=== PATIENT | male | born 1950 | race Caucasian/White ===

== ENCOUNTER 2017-08-25 11:04 | Outpatient (CLI) | payer MEDICARE ==
[~2017-08-25] VITALS: Ht 185.4 cm; Wt 97.7 kg
--- NOTE | ~2017-08-25 | HEMODYNAMI ---
PATIENT:CHAR SINGH MEDICAL RECORD: [id number] : 52 LOCATION:[facility] ADMISSION DATE: 08/25/17 Generatedon:08/25/201713:55 Patient name: CHAR SINGH Patient #: [id number] SSN: : 1950 Date of study: 08/25/2017 Page: Of Hemodynamic Procedure Report Patient Data Patient Demographics Procedure consent was obtained First Name: CHAR Gender: Male Last Name: SAMANTHA : 1950 Patient #: [id number] Age: 67 year(s) Race: Unknown Additional ID: [id number] Contact details [address]: [address] [place] [address] State: [place] City: [place] Zip code: [address] Admission Admission Data Admission Date: 08/25/2017 Admission Time: 11:04 Procedure Procedure Types Cath Procedure Diagnostic Procedure LHC LHC w/Coronaries Procedure Description Procedure Date Procedure Date: 08/25/2017 Procedure Start Time: 13:42 Procedure End Time: 13:53 Procedure Staff Name Function Jesus To MD Performing Physician Vangie Ochoa RT Monitor Arcelia Bell RT Scrub Kadeem Dejesus RN Nurse Procedure Data Cath Procedure Fluoroscopy Diagnostic fluoroscopy Total fluoroscopy Time: 2.2 time: 2.2 min min Diagnostic fluoroscopy Total fluoroscopy dose: 950 dose: 950 mGy mGy Contrast Material Contrast Material Type Amount (ml) Isovue 300 53 Entry Location Entry Primary Successful Side Size Upsize Upsize Entry Closure Solo ccessful Closure Location (Fr) 1 (Fr) 2 (Fr) Remarks Device Remarks Radial Right 6 Fr Mechanical artery Short Compression Estimated blood loss: 5 ml Diagnostic catheters Device Type Used For End Catheter Placement DIAGNOSTIC Burwell 110cm 5 Multi-vessel Fr catheter ([id number]) Angiography Procedure Complications No complications Procedure Medications Medication Administration Route Dosage 0.9% NaCl I.V. 100 ml/hr Oxygen etCO2 Nasal cannula 2 l/min Heparin Flush Bag added to field 2 bags (1000units/500ml NS) Lidocaine 2% added to field 20 Radial Cocktail added to field 1 syringe (Verapomil 2mg/Nitro 400mcg/Heparin 1500units) Versed I.V. 1 mg Fentanyl I.V. 50 mcg Radial Cocktail I.A. 1 syringe (Verapomil 2mg/Nitro 400mcg/Heparin 1500units) Hemodynamics Rest Heart Rate: 59 (bpm) Pressure Samples Time Site Value (mmHg) Purpose Heart Use Rate(bpm) 13:45 LV 138/0,22 Snapshot 77 13:46 AO 102/58(77) Pullback 76 13:46 LV 113/0,9 Pullback 76 Gradients Valve Time Site 1 Site 2 Mean SEP/DFP Peak To Heart Use (mmHg) (sec/min) Peak Rate (mmHg) (bpm) Aortic 13:45 LV AO 101 Aortic 13:46 LV AO 12 20 11 76 113/0,9 102/58(77) Calculations Valve P-P Mean Valve Index Valve Source Name Gradient Area Flow (cm2) Aortic 11 12 11 12 Snapshots Pre Cath Intra NCS Post Cath Vital Signs Time Heart Resp SPO2 etCO2 NIBP (mmHg) Rhythm Pain Sedation Rate (ipm) (%) (mmHg) Status Level (bpm) 13:23:39 60 17 97 0 148/65(100) NSR 0 (11) 10(A) , No pain 13:27:32 62 18 95 27.7 131/73(96) NSR 0 (11) 10(A) , No pain 13:31:26 57 15 96 25.4 131/69(97) NSR 0 (11) 10(A) , No pain 13:35:20 57 13 96 26.1 117/67(91) NSR 0 (11) 10(A) , No pain 13:40:16 61 13 95 32.1 145/72(98) NSR 0 (11) 10(A) , No pain 13:44:12 68 17 96 29.9 123/74(97) NSR 0 (11) 9(A) , No pain 13:48:03 76 17 93 27.7 116/68(88) NSR 0 (11) 9(A) , No pain 13:52:21 79 18 95 28.4 126/70(100) NSR 0 (11) 10(A) , No pain Medications Time Medication Route Dose Verified Delivered Reason Notes Effectiveness by by 13:21:59 0.9% NaCl I.V. 100 Levon Levon Per ml/hr Dharmesh Barroso physician RN RN 13:22:07 Oxygen etCO2 2 l/min Levon Levon Per Nasal Dharmesh Barroso physician cannula RN RN 13:22:17 Heparin Flush added 2 bags Levon Levon used for Bag to Lorigan Dharmesh procedure (1000units/500ml field RN RN NS) 13:22:27 Lidocaine 2% added 20ml Levon Levon for local to vial Lorigan Lorigan anesthetic field RN RN 13:22:38 Radial Cocktail added 1 Levon Levon used for (Verapomil to syringe Lorigan Carmeligan procedure 2mg/Nitro field RN RN 400mcg/Heparin 1500units) 13:41:48 Versed I.V. 1 mg Levon Levon for sedation Dharmesh Barroso RN RN 13:41:58 Fentanyl I.V. 50 mcg Levon Levon for sedation Dharmesh Barroso RN RN 13:44:13 Radial Cocktail I.A. 1 Levon Jesus for (Verapomil syringe Dharmesh To MD vasodilation 2mg/Nitro RN 400mcg/Heparin 1500units) Procedure Log Time Note 13:00:50 Vangie Ochoa RT(R) sent for patient. Start room use. 13:15:32 Diagnostic Cath Status : Elective 13:16:01 Time tracking: Regular hours (M-F 7:00 - 5:00) 13:16:06 Plan of Care:Hemodynamics will remain stable., Cardiac rhythm will remain stable., Comfort level will be maintained., Respiratory function will remain adequate., Patient/ family verbilizes understanding of procedure., Procedure tolerated without complication., Recovers from procedure without complications.. 13:16:32 Patient received from Pre/Post Procedure Room to [facility] 2 Alert and oriented. Tansferred to table in Supine position. 13:16:33 Warm blankets applied, and hannah hugger turned on for patient comfort. 13:16:33 Correct patient and procedure confirmed by team. 13:16:35 Signed procedure consent form obtained from patient. 13:16:36 ECG and BP/O2 sat monitors applied to patient. 13:21:59 0.9% NaCl 100 ml/hr I.V. was administered by Levon Barroso RN; Per physician; 13:22:07 Oxygen 2 l/min etCO2 Nasal cannula was administered by Levon Barroso RN; Per physician; 13:22:17 Heparin Flush Bag (1000units/500ml NS) 2 bags added to field was administered by Levon Barroso RN; used for procedure; 13::27 Lidocaine 2% 20ml vial added to field was administered by Levon Barroso RN; for local anesthetic; 13:22:38 Radial Cocktail (Verapomil 2mg/Nitro 400mcg/Heparin 1500units) 1 syringe added to field was administered by Levon Barroso RN; used for procedure; ::41 Vital chart was started 13:25:33 Baseline sample Acquired. 13:25:39 Rhythm: sinus rhythm 13:25:41 Full Disclosure recording started 13::44 H&P Date Dictated: 08/25/2017 Within 30 days and on chart., H&P Addendum completed by physician on day of procedure. (MUST COMPLETE FOR ALL OUTPATIENTS). 13:25:46 Pre-procedure instructions explained to patient. 13:25:46 Pre-op teaching completed and patient verbalized understanding. 13:25:47 Family in waiting room. 13:25:49 Patient NPO since Midnight. 13:25:51 Is the patient allergic to Iodine/contrast media? No. 13:25:52 Was the patient premedicated? No 13:25:53 Is patient on blood thinner?No 13:25:54 Patient diabetic? Yes. 13:25:55 If diabetic: On Metformin? Yes 13:25:58 If on Metformin: Last Dose? 08/23/2017 13:26:21 Previous problem with sedation/anesthesia? No ? 13:26:23 Snore? No 13:26:24 Sleep apnea? No 13:26:25 Deviated septum? No 13:26:25 Opens mouth fully? Yes 13:26:26 Sticks out tongue? Yes 13:26:28 Airway obstruction? No ? 13:26:31 Dentures? No ? 13:26:39 Pre procedure: right dorsailis pedis pulse 2+ Normal; easily identifiable; not easily obliterated 13::41 Pre procedure: left dorsailis pedis pulse 2+ Normal; easily identifiable; not easily obliterated 13:26:43 Patient pain scale 0/10 ?. 13:26:48 IV patent on arrival in left hand with 0.9% NaCl at [facility]. 13:26:50 Lab results completed and on chart. 13:26:54 Right Radial & Right Groin area was prepped with chlora-prep and draped in sterile fashion 13:26:55 Alarms reviewed by R. N. 13:26:55 Sharps counted by scrub and verified by R.N. 13:39:17 Physician arrived 13:39:18 --------ALL STOP TIME OUT------ 13:39:18 Final Timeout: patient, procedure, and site verified with staff and physician. All members of the team are in agreement. 13:39:23 Right Radial & Right Groin site verified by team. 13:39:30 Physical assessment completed. ASA score P 2 - A patient with mild systemic disease as per Jesus To MD. 13:39:34 Sedation plan: IV Moderate Sedation Medication:Versed, Fentanyl 13:41:46 Use device set Radial Dx or PCI 13:41:47 ACIST Syringe (96011) opened to sterile field. 13:41:47 Medline Cath Pack ([id number]) opened to sterile field. 13:41:48 Versed 1 mg I.V. was administered by Levon Barroso RN; for sedation; 13:41:48 Bag Decanter (2002S) opened to sterile field. 13:41:48 DIAGNOSTIC WIRE .035 260cm J wire (984940) opened to sterile field. 13:41:49 ACIST Hand Control (61893) opened to sterile field. 13:41:49 ACIST Manifold (03727) opened to sterile field. 13:41:50 Tegaderm 4 x 4 (1626W) opened to sterile field. 13:41:52 SHEATH 6Fr Prelude Radial ([id number]) opened to sterile field. 13:41:58 Fentanyl 50 mcg I.V. was administered by Levon Barroso RN; for sedation; 13:41:58 Procedure started. 13:42:05 Local anesthetic to right radial artery with Lidocaine 2% by Jesus To MD.INITIAL ACCESS ONLY 13:42:13 A 6 Fr Short sheath was inserted into the Right Radial artery 13:44:13 Radial Cocktail (Verapomil 2mg/Nitro 400mcg/Heparin 1500units) 1 syringe I.A. was administered by Jesus To MD; for vasodilation; 13:45:07 A DIAGNOSTIC Burwell 110cm 5 Fr catheter (338749) was advanced over the wire and used for Multi-vessel Angiography. 13:45:21 LV hemodynamics recorded. 13:45:22 LV gram done using MONROE 13:45:25 Injector settings: Ml/sec: 5, Volume: 15, 13:45:37 EF : 50 % 13:46:52 RCA angiography performed. 13:46:56 Injector settings: Ml/sec: 3, Volume: 6, 13:47:59 LCA angiography performed. 13:48:02 Injector settings: Ml/sec: 3, Volume: 6, 13:49:46 Catheter removed. 13:49:49 TR BAND Standard ([id number]) opened to sterile field. 13:50:11 Sheath removed intact; hemostasis achieved with Mechanical Compression to the Right Radial artery. 13:50:56 Procedure ended.(Physican Out) 13:51:55 Fluoroscopy time 02.20 minutes. 13:52:01 Fluoroscopy dose: 950 mGy 13:52:01 Flurop Dose total: 950 13:52:16 Contrast amount:Isovue 300 53ml. 13:52:18 Sharps counted by scrub and verified by R.N. 13:52:20 TR band inflated with 10cc of air. 13:52:22 Insertion/operative site no bleeding no hematoma. 13:52:25 Post right radial artery:stable 13:52:26 Post Procedure Pulses reassessed and unchanged 13:52:30 Post procedure rhythm: unchanged. 13:52:33 Estimated blood loss: 5 ml 13:52:34 Post procedure instruction explained to patient.Patient verbalizes understanding. 13:52:34 Patient needs reinforcement of post procedure teaching. 13:52:52 Procedure and supply charges have been captured, reviewed, submitted and are correct. 13:53:11 Procedure Complication : No complications 13:53:15 Vital chart was stopped 13:53:15 See physician's report for complete and final results. 13:53:17 Report given to Pre/Post Procedure Room. 13:53:20 Patient transfered to Pre/Post Procedure Room with Stretcher. 13:53:22 Procedure ended. 13:53:22 Full Disclosure recording stopped 13:53:44 End room use (Document Last) Device Usage Item Name Manufacture Quantity Catalog Number Hospital Part Current M inimal Lot# / Charge Number Stock Stock Serial# Code ACIST Syringe Acist 1 65977 [id number] [id number] 411202 2 0 (41034) Medical Systems Inc Medline Cath Cardinal 1 [id number] 067805 23163 006155 5 Pack Health ([id number]) Bag Decanter Microtek 1 2002S 121271 00817 284628 5 (2001S) Medical Inc. DIAGNOSTIC WIRE [facility] [place] 1 183740 681365 600813 215175 3 0 .035 260cm J wire (480288) ACIST Hand Acist 1 14128 291668 753288 654156 5 Control (40861) Medical Systems Inc ACIST Manifold Acist 1 47957 712755 202537 789481 5 (58652) Medical Systems Inc Tegaderm 4 x 4 3M 1 1626W 457009 683967 839861 5 (1626W) SHEATH 6Fr Merit 1 [id number] 849086 519274 623560 5 Prelude Radial Medical ([id number]) DIAGNOSTIC Terumo 1 40-5013 040656 428530 853573 5 Burwell 110cm 5 Fr catheter (966142) TR BAND Terumo 1 [id number] 276041 583971 169199 4 0 Standard ([id number]) Signature Audit [place] Stage Time Signature Unsigned Intra-Procedure 08/25/2017 Vangie Ochoa 1:55:49 PM RT(R) Signatures Monitor : Vangie Ochoa RT Signature : Date : Time : [facility] [address] [place] [address]
[~2017-08-25 11:04] MED LIST: DOXYCYCLINE HY100 M2 PO; GLUCOPHAGE500 MG PO; GLUCOPHAGE850 MG PO; LANTUS INSULIN10 ML SC; LISINOPRIL10 MG PO; NEURONTIN 300300 MG PO; STERAPRED DS 1210 MG PO
[2017-08-25 11:49] VITALS: Ht 185.4 cm; Wt 97.7 kg
[2017-08-25 12:21] LABS: BASOPHILS 0.7 % (0-2); EOSINOPHILS 4.5 % (0-7); HEMATOCRIT 41.9 % (42.0-54.0); HEMOGLOBIN 14.4 g/dL (13.5-17.5); IMMATURE GRANULOCYTES 0.4 % (0-5); LYMPHOCYTES 22.3 % (15-50); MCH 31.2 pg (26.0-34.0); MCHC 34.4 g/dL (31.0-37.0); MCV 90.7 fL (80.0-100.0); MEAN PLATELET VOLUME 9.9 fL (7.4-10.4); MONOCYTES 6.2 % (2-11); NEUTROPHILS 65.9 % (40-80); PLATELET COUNT 214 10x3/uL (130-400); RBC 4.62 10x6/uL (4.20-6.10); RDW 13.1 % (11.5-14.5); WBC 7.6 10x3/uL (4.8-10.8)
[2017-08-25 12:27] LABS: ANION GAP 13.1 mmol/L (8-16); CALCIUM 9.2 mg/dL (8.5-10.1); CARBON DIOXIDE 26.2 mmol/L (21.0-32.0); CREATININE - SERUM 1.2 mg/dL (0.6-1.3); POTASSIUM - SERUM 4.3 mmol/L (3.5-5.1)
== END 2017-08-25 16:30 | disposition home or self-care (01) ==
LOC: D.CATH 11:04
PROVIDERS: Internal Medicine Cardiovascular Disease
DX: I25.119 Atherosclerotic heart disease of native coronary artery with unspecified angina pectoris (principal); E11.9 Type 2 diabetes mellitus without complications; I10 Essential (primary) hypertension

== ENCOUNTER 2017-08-28 15:30 | Inpatient (IN) | payer MEDICARE ==
[~2017-08-28] VITALS: Ht 185.4 cm; Wt 105.5 kg
--- NOTE | ~2017-08-28 | HP ---
PATIENT: ALYSHA SINGH MEDICAL RECORD: [id number] ACCOUNT: [id number] LOCATION:[facility] : 52 ADMISSION DATE: 08/28/17 HISTORY AND PHYSICAL EXAMINATION ROS Tang (67yo, M) ID# [id number]. Date/Time08/28/2017 02:41MAPSM59/26/1951Service Dept.NPP_[facility] ClinicProviderEDJERI COSBY MDInsuranceMed Primary: [facility] (MEDICARE REPLACEMENT/ADVANTAGE - PPO) Insurance # : [id number] Policy/Group # : [id number] PCP : JOE SPENCE Employer Name : [employer] Payment plan: PAYMENT PLAN #[id number] Prescription: Clip - This member could not be found in the payer's files. Please verify coverage and all member demographic information. Chief Complaint Coronary artery disease Patient's Care Team Primary Care Provider (): JOE SPENCE: [address] [place] [address] [address], [place] [address], , Patient's Pharmacies [facility] ([facility]): [address], [place] [address], , Vitals BP:134/74 sitting R arm 08/28/2017 02:56 pm 132/74 sitting L arm 08/28/2017 02:58 pmBP Cuff Size:adult 08/28/2017 02:56 pm adult 08/28/2017 02:58 pmHR:80/REG 08/28/2017 02:58 pmHt:6 ft 1 in 08/28/2017 02:52 pmWt:215 lbs 08/28/2017 02:53 pmBMI:28.4 08/28/2017 02:53 pmAllergies Reviewed Allergies PENICILLINSMedications Reviewed Medications AndroGel 20.25 mg/1.25 gram (1.62 %) transdermal gel pump Apply 2 pump(s) by transdermal route.03/24/17 prescribedJejaquan Spence DOgabapentin 300 mg capsule TAKE THREE CAPSULES BY MOUTH EVERY MORNING AND TAKE TAKE THREE CAPSULES EVERY DBWAIEP95/21/18 Ronda Spence DOlosartan 100 mg tablet Take 1 tablet(s) every day by oral route.07/08/17 prescribedJoe Spence DOmetFORMIN 1,000 mg tablet TAKE ONE TABLET BY MOUTH TWICE A DAY WITH FOOD03/12/17 Ronda Spence DOpioglitazone 30 mg tablet Take 1 tablet(s) every day by oral route.04/29/17 prescribedJoe Spence DOtestosterone cypionate 200 mg/mL intramuscular oil Inject 1 mL every 4 weeks by intramuscular route.03/25/17 prescribedJoe Spence DOtraMADol 50 mg tablet Take 1 tablet(s) every 6 hours by oral route as needed.08/25/17 prescribedJoe Spence DOProblems Reviewed Problems Type 2 diabetes mellitus Coronary arteriosclerosis - Onset: 08/28/2017 Family History Reviewed Family History Father- Problem ( age: 86)Social History Reviewed Social History HISTORY AND PHYSICAL [id number] ALYSHA SINGH General 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 *SJ Past Medical History Reviewed Past Medical History Chest Pain: Y Diabetes: Y - NON-INSULIN Hypertension: Y Documents for Discussion Discussed the following documents: CARDIAC CATHETERIZATION (SURG) - 08/25/17 CARDIOLOGY CONSULT NOTE - 07/28/17 Notes - berger Screening None recorded. HPI Dyspnea Reported by patient. Quality: dyspnea Severity: mild Duration: for 6-8 months Onset/Timing: daily Context: with activity; walking on level ground; walking up inclines; walking up strairs Alleviating Factors: rest Aggravating Factors: activity Associated Symptoms: no orthopnea; no fever; no chills; no wheezing; no sputum production; no hemoptysis; chest pain/discomfort; fatigue coronary artery disease with angina equivalent and shortness of breath ROS Patient reports exercise intolerance but reports no fever, no night sweats, and no significant weight loss. He reports difficulty hearing. He reports chest pain on exertion, shortness of breath when walking, and chest pain but reports no arm pain on exertion and no palpitations. He reports erectile dysfunction. He reports no muscle aches, no muscle weakness, and no arthralgias/joint pain; leg crampos at night. He reports no abnormal mole, no jaundice, and no rashes; lower legs. He reports no loss of consciousness, no weakness, no numbness, no seizures, no dizziness, and no headaches; pain and numbness both feet--. He reports no dry eyes and no irritation. He reports no frequent nosebleeds and no nose/sinus problems. He report s no sore throat and no bleeding gums. He reports no jugular vein distension. He reports no cough, no wheezing, no shortness of breath, and no coughing up blood. He reports no abdominal pain, no vomiting, normal appetite, no diarrhea, not vomiting blood, no nausea, and no constipation. He reports no fatigue. He reports no swollen glands and no bruising. ROS as noted in the HPI HISTORY AND PHYSICAL [id number] ALYSHA SINGH Physical Exam Patient is a 67-year-old male. Constitutional: General Appearance well nourished and developed and healthy-appearing. Level of Distress NAD. Ambulation ambulating normally. Cardiovascular: Apical Impulse not displaced or no thrill. Heart Auscultation normal s1 and s2; no murmurs, rubs, or gallops; and RRR. Arterial Pulses no abdominal aorta bruits, femoral bruits, or popliteal bruits and 2+ bilateral, carotid 2+ bilateral, femoral 2+ bilateral, popliteal 2+ bilateral, and dorsalis pedis 2+ bilateral. Edema no edema or varicosities. Lungs: Repiratory Effort no dyspnea. Percussion no hyperresonance or dullness or flatness. Auscultation no wheezing, rhonchi, or rales / crackles and breathing sounds normal, good air movement, and CTA except as noted. Abdomen: Bowl Sounds normal. Inspection and Palpation no tend erness, guarding, masses, or rebound tenderness and soft and non-distended. Liver non-tender and no hepatomegaly. Spleen non-tender and no splenomegaly. Hernia none palpable. Musculoskeletal System: Gait And Stance normal gait and stance. Digits and Nails normal nails and no cyanosis. Neurologic: Cranial Nerves grossly intact. Reflexes DTRs 2+ bilaterally throughout. Sensation grossly intact. Lymph Nodes: Lymph Nodes no cervical LAD, supraclavicular LAD, axillary LAD, or inguinal LAD. Eyes: Lids and Conjunctivae no discharge or pallor and non-injected. Pupils PERRLA. Cornea grossly intact. EOM EOMI. Lens clear. Sclerae non-icteric. Neck: Neck no masses or enlarged lymph nodes and supple, trachea midline, and carotid bruits (left). Thyroid no enlargement or nodules and non-tender. Skin: Inspection and Palpation no rash, lesions, ulcers, jaundice, or abnormal nevi. Assessment / Plan coronary artery disease with angina equivalent shortness of breath diabetes mellitus Peripheral neuropathy Hypertension 1. Coronary arteriosclerosis I25.10: Atherosclerotic heart disease of [place] coronary artery without angina pectoris Discussion Notes severe occlusive coronary artery disease with angina: Shortness of breath. I agree with Dr. Berger the patien t would benefit from coronary artery bypass. I have discussed his disease process with him and his in detail as well as the alternative methods of treatment we discussed coronary artery bypass including the expected benefits and risk which include bl eeding, infection, stroke, , and imponderables. He understands all of the above and wishes to proceed with planned surgery Plan carotid Doppler and blood work today. HISTORY AND PHYSICAL [id number] ALYSHA SINGH EDWARD MD at 1309 CC: [id number] DICTATION DATE: 08/28/17 1410 LIGHTING ADVISER: JAMARI 08/29/17 0552 PRE IN [facility] [address] [place] [address]
--- NOTE | ~2017-08-28 | TEE ---
PATIENT:ALYSHA SINGH MEDICAL RECORD: [id number] LOCATION:[place] [address] AGE OF PATIENT: 67 ADMISSION DATE: 08/31/17 SEX: M REFERRING PHYSICIAN: INTERPRETING PHYSICIAN: AMANDA PRICE MD TRANSESOPHAGEAL ECHOCARDIOGRAM Date: 08/31/17 JOANNA CHARGE Y INDICATIONS: CABG PREMEDICATIONS: PATIENT'S RESPONSE PROCEDURE DOPPLER MEASUREMENTS: LVIT LA PA RA LVOT RVOT Asc. Ao AV Gradient Peak AV Mean AV Area MV Gradient Peak MV Mean MV Area INTERPRETATION: LVd: 3.9 cm LVS: 2.1 CM Doppler: 2-D: COLOR FLOW DOPPLER NORMAL SALINE STUDY: MISCELLANOUS: DIAGNOSIS: PLAN: Stave Jointer:Rolan To Glassblower: Mecca MEJIA COMMENTS: DATE OF SERVICE: PROCEDURE: Transesophageal echo evaluation of valvular structures during bypass surgery. FINDINGS: 1. Left ventricular chamber size is within normal limits. Left ventricular systolic function is normal. Overall ejection fraction is estimated at 60%. 2. Left atrium, right atrium, and right ventricle chamber sizes are within TRANSESOPHAGEAL ECHOCARDIOGRAM REPORT [id number] ALYSHA SINGH normal limit. 3. Valvular structures have normal structure and motion. 4. Doppler interrogation only reveals beyoj-ne-ynjy aortic insufficiency and oxvxc-qa-waas mitral regurgitation. No other valvular insufficiency or stenosis. 5. No evidence of pericardial effusion or left ventricular thrombus. TRANSINT:[id number] Voice Confirmation ID: [id number] DOCUMENT ID: [id number] at 1230 CC: [id number] DICTATION DATE: 09/07/17 0947 SHORE MAN: 09/07/17 1156 DIS IN 09/05/17 [facility] [address] [place] [id number]
--- NOTE | ~2017-08-28 | OP ---
PATIENT NAME: ALYSHA SINGH MEDICAL RECORD: [id number] :52 LOCATION:[id number] ADMISSION DATE:08/31/17 SURGEON: CECILIO BAEZ MD DATE OF OPERATION: 08/31/2017 SURGEON: Cecilio Baez MD ANESTHESIA: General endotracheal, Dr. Bills. OPERATION PERFORMED: Coronary artery bypass. 1. Left internal thoracic to left anterior descending. 2. Reverse saphenous vein graft to posterior descending coronary artery and reverse saphenous vein graft to the first diagonal, sequential obtuse marginal, sequential obtuse marginal 2 coronary artery. PREOPERATIVE DIAGNOSIS: Severe occlusive coronary artery disease with compelling anatomy. POSTOPERATIVE DIAGNOSIS: Severe occlusive coronary artery disease with compelling anatomy. INDICATION FOR OPERATION: Compelling anatomy. FINDINGS OF THE OPERATION: The right greater saphenous vein graft was excellent for grafting. The left internal thoracic was an excellent conduit and the target vessels were of good quality and caliber. Left ventricular function was normal. ESTIMATED BLOOD LOSS: Cell Saver was used. DESCRIPTION OF PROCEDURE: After informed consent, adequate preoperative medication evaluation, the patient was brought to the operating room, placed on the table in supine position. After induction of general endotracheal anesthesia and application of appropriate monitoring devices, the chest, neck, abdomen, and both legs were prepped and draped in sterile field, utilizing Betadine scrub, alcohol, and Betadine solution. Betadine-impregnated drape was also used. Saphenous vein was harvested from the right leg through small transverse incisions. Legs were closed over drains utilizing 3-0 Vicryl and skin cass. A median sternotomy incision was used and dissection carried down to the fascia. Hemostasis was maintained with electrocautery. Sternum was divided. Innominate vein was identified and protected. Left internal thoracic was taken down and prepared for grafting. The patient was given a calculated dose of heparin, cannulated in the standard fashion utilizing 1 aortic, one two-stage cannula in the atrium and inferior vena cava. The patient was placed on cardiopulmonary bypass, cooled to 32 degrees centigrade. A cross clamp was placed just proximal to the aortic cannula and the patient was given cardioplegic solution through the aortic root. The patient was given a cold induction and cold maintenance. The patient was given intermittent cardioplegic solution throughout the procedure through the root, through the grafts or a combination of both. The first vessel to be grafted was the second obtuse marginal. It was grafted end-to-side utilizing a running 7-0 Prolene suture. Graft was measured back to the first obtuse marginal and then a [id number] anastomosis made utilizing running 7-0 Prolene suture. The graft was then measured to the first diagonal in a [id number] anastomosis fashion utilizing running 7-0 Prolene suture. Graft was measured back to the aorta and a proximal OPERATIVE REPORT [id number] ALYSHA SINGH anastomosis fashioned utilizing running 6-0 Prolene suture. Next, the posterior descending was grafted end-to-side utilizing a running 7-0 Prolene suture. Graft was measured back to the aorta and a proximal anastomosis fashioned utilizing running 6-0 Prolene suture. Next, left internal thoracic was brought through a hole in pericardium, sutured to left anterior descending end-to-side utilizing a running 8-0 Prolene suture. Pedicle was attached to epicardium with 6-0 Prolene suture. All maneuvers to remove trapped air were performed. The clamps were removed. The patient was given warm cardioplegic reperfusion and controlled reperfusion. The patient was rewarmed to 37 degrees centigrade. Two atrial and 2 ventricular pacing wires were placed in the heart, brought out through the epigastric area. The patient was weaned from cardiopulmonary bypass. After being stable off bypass, he was given calculated dose of protamine to reverse the heparin. Chest and mediastinum were irrigated with copious amounts of antibiotic solution and normal saline. Hemostasis was assured. A #40 right angle and #36 chest tubes were brought in through the epigastric area and placed in mediastinum. A separate left pleural tube was connected to underwater seal and suction. A separate Darren drain was left in the inferior left hemithorax. The chest was again irrigated. Instrument count and sponge count were correct times 2. Chest was closed in layers utilizing #7 wire on the sternum, #2 Vicryl in linea alba and pectoralis fascia. Subcutaneous tissue was approximated with 3-0 Vicryl and skin approximated with 3-0 subcuticular Vicryl. Sterile dressings were applied. The patient tolerated the procedure well and transferred to cardiovascular recovery in critical, but stable condition. TRANSINT:[id number] Voice Confirmation ID: [id number] DOCUMENT ID: [id number] CECILIO BAEZ MD at 1619 CC: [id number] DICTATION DATE: 08/31/17 1526 COUNTY AGENT: 08/31/17 1549 DIS IN 09/05/[address] [place] [id number] [facility] [address]
[2017-08-28 17:07] LABS: BASOPHILS 0.5 % (0-2); EOSINOPHILS 2.2 % (0-7); HEMATOCRIT 41.1 % (42.0-54.0); HEMOGLOBIN 14.5 g/dL (13.5-17.5); IMMATURE GRANULOCYTES 0.3 % (0-5); LYMPHOCYTES 23.2 % (15-50); MCH 31.7 pg (26.0-34.0); MCHC 35.3 g/dL (31.0-37.0); MCV 89.7 fL (80.0-100.0); MEAN PLATELET VOLUME 9.7 fL (7.4-10.4); MONOCYTES 5.7 % (2-11); NEUTROPHILS 68.1 % (40-80); PLATELET COUNT 234 10x3/uL (130-400); RBC 4.58 10x6/uL (4.20-6.10); RDW 13.2 % (11.5-14.5); WBC 10.5 10x3/uL (4.8-10.8)
[2017-08-28 17:21] LABS: APPEARANCE CLEAR (CLEAR); BILIRUBIN NEGATIVE (NEGATIVE); COLOR YELLOW (YELLOW); GLUCOSE NEGATIVE (NEGATIVE); KETONE NEGATIVE (NEGATIVE); NITRITE NEGATIVE (NEGATIVE); PROTEIN NEGATIVE (NEGATIVE); SPECIFIC GRAVITY 1.025 (1.005-1.020); UROBILINOGEN NORMAL (NORMAL)
[2017-08-28 17:24] LABS: APTT 29.6 SECONDS (22.8-39.4); INR 0.95 (0.85-1.17); PROTIME 12.3 SECONDS (11.6-15.0)
[2017-08-28] MEDS ORDERED: GLUCOPHAGE1000 MG PO (17:35)
[2017-08-28] MEDS ORDERED: ACTOS30 MG PO (17:37)
[2017-08-28] MEDS ORDERED: LOSARTAN POTASS25 MG PO (17:37)
[2017-08-28 17:40] LABS: ALBUMIN 4.1 g/dL (3.4-5.0); ANION GAP 17.4 mmol/L (8-16); BILIRUBIN - TOTAL 0.38 mg/dL (0.2-1.3); CALCIUM 10.2 mg/dL (8.5-10.1); CARBON DIOXIDE 22.7 mmol/L (21.0-32.0); CREATININE - SERUM 1.2 mg/dL (0.6-1.3); PHOSPHOROUS 4.7 mg/dL (2.5-4.9); POTASSIUM - SERUM 4.1 mmol/L (3.5-5.1); PROTEIN - SERUM 8.2 g/dL (6.4-8.2); T4 THYROXIN - FREE 0.8 ng/dL (0.76-1.46); THYROID STIMULATING HORMONE 2.45 uIU/mL (0.36-3.74); URIC ACID 3.9 mg/dL (2.6-7.2)
[2017-08-31] VITALS (32 sets, daily range): BP systolic 94–130; BP diastolic 40–83; BMI 28.2; BMI 28.1
[2017-08-31 07:53] LABS: PLT FUNCT.(P2Y12) PLAVIX 257 PRU (194-418)
[2017-08-31 14:39] LABS: HEMATOCRIT 26.8 % (42.0-54.0); HEMOGLOBIN 9.1 g/dL (13.5-17.5); MCH 30.8 pg (26.0-34.0); MCV 90.8 fL (80.0-100.0); MEAN PLATELET VOLUME 9.3 fL (7.4-10.4); RBC 2.95 10x6/uL (4.20-6.10); RDW 12.9 % (11.5-14.5); WBC 15.6 10x3/uL (4.8-10.8)
[2017-08-31 14:48] LABS: APTT 38.2 SECONDS (22.8-39.4); INR 1.33 (0.85-1.17); PROTIME 16.1 SECONDS (11.6-15.0)
[2017-08-31 14:56] LABS: CALCIUM 7.5 mg/dL (8.5-10.1); CARBON DIOXIDE 24.3 mmol/L (21.0-32.0); CREATININE - SERUM 1.4 mg/dL (0.6-1.3); POTASSIUM - SERUM 3.3 mmol/L (3.5-5.1)
[2017-08-31 23:24] LABS: HEMATOCRIT 22.1 % (42.0-54.0); HEMOGLOBIN 7.6 g/dL (13.5-17.5)
[2017-09-01] VITALS (72 sets, daily range): BP systolic 91–139; BP diastolic 41–64; Ht 185.4 cm; Wt 105.5 kg
[2017-09-01 05:53] LABS: MCH 29.9 pg (26.0-34.0); MCHC 33.7 g/dL (31.0-37.0); MCV 88.9 fL (80.0-100.0); MEAN PLATELET VOLUME 9.7 fL (7.4-10.4); RBC 3.14 10x6/uL (4.20-6.10); RDW 14.2 % (11.5-14.5); WBC 11.8 10x3/uL (4.8-10.8)
[2017-09-01 05:54] LABS: HEMATOCRIT 27.9 % (42.0-54.0); HEMOGLOBIN 9.4 g/dL (13.5-17.5)
[2017-09-01 06:24] LABS: ALBUMIN 3.7 g/dL (3.4-5.0); BILIRUBIN - TOTAL 0.97 mg/dL (0.2-1.3); CALCIUM 7.9 mg/dL (8.5-10.1); CARBON DIOXIDE 25.5 mmol/L (21.0-32.0); CREATININE - SERUM 1.6 mg/dL (0.6-1.3)
[2017-09-01 06:27] LABS: POTASSIUM - SERUM 4.5 mmol/L (3.5-5.1)
[2017-09-01 13:17] LABS: HEPATITIS C ANTIBODY 0.2 (0.0-0.9)
[2017-09-02] VITALS (27 sets, daily range): BP systolic 91–137; BP diastolic 56–73
[2017-09-02 06:20] LABS: HEMOGLOBIN 9.1 g/dL (13.5-17.5); MCH 30.5 pg (26.0-34.0); MCHC 33.7 g/dL (31.0-37.0); MCV 90.6 fL (80.0-100.0); MEAN PLATELET VOLUME 10.1 fL (7.4-10.4); PLATELET COUNT 99 10x3/uL (130-400); RBC 2.98 10x6/uL (4.20-6.10); RDW 14.5 % (11.5-14.5); WBC 12.1 10x3/uL (4.8-10.8)
[2017-09-02 06:28] LABS: ALBUMIN 3.2 g/dL (3.4-5.0); ANION GAP 10.1 mmol/L (8-16); BILIRUBIN - TOTAL 0.56 mg/dL (0.2-1.3); CALCIUM 7.6 mg/dL (8.5-10.1); CARBON DIOXIDE 27.1 mmol/L (21.0-32.0); CREATININE - SERUM 1.4 mg/dL (0.6-1.3); POTASSIUM - SERUM 4.2 mmol/L (3.5-5.1)
[2017-09-02 07:03] LABS: PLATELET ESTIMATE DECREASED
[2017-09-03] VITALS (25 sets, daily range): BP systolic 92–137; BP diastolic 49–81
[2017-09-03 06:26] LABS: HEMATOCRIT 26.7 % (42.0-54.0); HEMOGLOBIN 8.8 g/dL (13.5-17.5); MCV 91.1 fL (80.0-100.0); RBC 2.93 10x6/uL (4.20-6.10); RDW 13.9 % (11.5-14.5)
[2017-09-03 06:46] LABS: ANION GAP 9.5 mmol/L (8-16); BILIRUBIN - TOTAL 0.62 mg/dL (0.2-1.3); CARBON DIOXIDE 29.4 mmol/L (21.0-32.0); CREATININE - SERUM 1.3 mg/dL (0.6-1.3); POTASSIUM - SERUM 3.9 mmol/L (3.5-5.1); PROTEIN - SERUM 6.2 g/dL (6.4-8.2)
[2017-09-04] VITALS (18 sets, daily range): BP systolic 103–126; BP diastolic 53–81
[2017-09-04 07:03] LABS: HEMATOCRIT 29.9 % (42.0-54.0); HEMOGLOBIN 9.9 g/dL (13.5-17.5); MCH 30.6 pg (26.0-34.0); MCHC 33.1 g/dL (31.0-37.0); MCV 92.3 fL (80.0-100.0); MEAN PLATELET VOLUME 9.8 fL (7.4-10.4); RBC 3.24 10x6/uL (4.20-6.10); RDW 13.8 % (11.5-14.5); WBC 11.1 10x3/uL (4.8-10.8)
[2017-09-04 07:36] LABS: ANION GAP 11.8 mmol/L (8-16); BILIRUBIN - TOTAL 0.64 mg/dL (0.2-1.3); CALCIUM 8.1 mg/dL (8.5-10.1); CARBON DIOXIDE 26.2 mmol/L (21.0-32.0); CREATININE - SERUM 1.3 mg/dL (0.6-1.3); PROTEIN - SERUM 6.6 g/dL (6.4-8.2)
[2017-09-04] MEDS ORDERED: ASPIRIN81 MG PO (10:03)
[2017-09-04] MEDS ORDERED: LOPRESSOR25 MG PO (10:03)
[2017-09-04] MEDS ORDERED: PERCOCET 5-3251 TAB PO (10:04)
[2017-09-04] MEDS ORDERED: COLACE100 MG PO (10:04)
[2017-09-04] MEDS ORDERED: CORDARONE200 MG PO (11:21)
[2017-09-05 03:00] VITALS: BP 107/59
[2017-09-05 04:00] VITALS: BP 128/64
[2017-09-05 05:00] VITALS: BP 120/67
[2017-09-05 05:54] LABS: HEMATOCRIT 26.5 % (42.0-54.0); HEMOGLOBIN 9.1 g/dL (13.5-17.5); MCH 31.4 pg (26.0-34.0); MCHC 34.3 g/dL (31.0-37.0); MCV 91.4 fL (80.0-100.0); MEAN PLATELET VOLUME 9.5 fL (7.4-10.4); RBC 2.9 10x6/uL (4.20-6.10); RDW 13.6 % (11.5-14.5)
[2017-09-05 06:00] VITALS: BP 119/61
[2017-09-05 06:05] LABS: WBC 7.5 10x3/uL (4.8-10.8)
[2017-09-05 06:34] LABS: ALBUMIN 2.5 g/dL (3.4-5.0); ANION GAP 11.7 mmol/L (8-16); BILIRUBIN - TOTAL 0.61 mg/dL (0.2-1.3); CALCIUM 7.8 mg/dL (8.5-10.1); CREATININE - SERUM 1.1 mg/dL (0.6-1.3); POTASSIUM - SERUM 3.7 mmol/L (3.5-5.1); PROTEIN - SERUM 5.8 g/dL (6.4-8.2)
[2017-09-05 07:00] VITALS: BP 142/68
[2017-09-05 09:00] VITALS: BP 142/78
== END 2017-09-05 12:15 | disposition home or self-care (01) | DRG 236 ==
LOC: D.SDCHOLD 15:30 → D.CVICU 08-31 05:12 → D.SDCHOLD 08-31 05:12 → D.CVICU 08-31 13:34
PROVIDERS: Internal Medicine Cardiovascular Disease
PROC: 021209W Bypass Coronary Artery, Three Arteries from Aorta with Autologous Venous Tissue, Open Approach (ICD-10-PCS; 2017-08-31)
PROC: 06BP0ZZ Excision of Right Saphenous Vein, Open Approach (ICD-10-PCS; 2017-08-31)
PROC: 5A1221Z Performance of Cardiac Output, Continuous (ICD-10-PCS; 2017-08-31)
PROC: 02100ZC Bypass Coronary Artery, One Artery from Thoracic Artery, Open Approach (ICD-10-PCS; principal; 2017-08-31 07:30)
DX: I25.119 Atherosclerotic heart disease of native coronary artery with unspecified angina pectoris (principal); E11.9 Type 2 diabetes mellitus without complications; I10 Essential (primary) hypertension; R06.00 Dyspnea, unspecified; G62.9 Polyneuropathy, unspecified

== ENCOUNTER → 2017-09-17 12:19 | Outpatient (CLI) | payer MEDICARE ==
[2017-09-01 10:47] VITALS: BMI 30.9
[~2017-09-17 12:19] MED LIST changes: +ACTOS30 MG PO; +ASPIRIN81 MG PO; +COLACE100 MG PO; +CORDARONE200 MG PO; +GLUCOPHAGE1000 MG PO; +LOPRESSOR25 MG PO; +LOSARTAN POTASS25 MG PO; +PERCOCET 5-3251 TAB PO
[2017-09-17 12:46] LABS: HEMATOCRIT 37.7 % (42.0-54.0); HEMOGLOBIN 12.8 g/dL (13.5-17.5); MCV 91.3 fL (80.0-100.0); MEAN PLATELET VOLUME 8.7 fL (7.4-10.4); RBC 4.13 10x6/uL (4.20-6.10); RDW 13.9 % (11.5-14.5); WBC 9.5 10x3/uL (4.8-10.8)
[2017-09-17 13:03] LABS: ALBUMIN 3.6 g/dL (3.4-5.0); ANION GAP 13.2 mmol/L (8-16); BILIRUBIN - TOTAL 0.39 mg/dL (0.2-1.3); CALCIUM 9.2 mg/dL (8.5-10.1); CARBON DIOXIDE 28.2 mmol/L (21.0-32.0); CREATININE - SERUM 1.5 mg/dL (0.6-1.3); POTASSIUM - SERUM 4.4 mmol/L (3.5-5.1); PROTEIN - SERUM 8.4 g/dL (6.4-8.2)
== END | disposition home or self-care (01) ==
LOC: D.LAB 12:19
PROVIDERS: Internal Medicine Cardiovascular Disease
DX: J91.8 Pleural effusion in other conditions classified elsewhere (principal); D64.9 Anemia, unspecified

== ENCOUNTER 2017-10-16 12:15 | Inpatient (IN) | payer MEDICARE ==
[~2017-10-16] VITALS: Ht 185.4 cm; Wt 85.0 kg
[2017-10-16] VITALS (8 sets, daily range): BP systolic 101–140; BP diastolic 37–62; BMI 25.2
[2017-10-16 13:17] LABS: BASOPHILS 0.4 % (0-2); EOSINOPHILS 2.4 % (0-7); HEMATOCRIT 35.7 % (42.0-54.0); IMMATURE GRANULOCYTES 0.3 % (0-5); LYMPHOCYTES 14.1 % (15-50); MCH 30.2 pg (26.0-34.0); MCHC 33.6 g/dL (31.0-37.0); MCV 89.7 fL (80.0-100.0); MEAN PLATELET VOLUME 9.5 fL (7.4-10.4); MONOCYTES 4.1 % (2-11); NEUTROPHILS 78.7 % (40-80); RBC 3.98 10x6/uL (4.20-6.10); RDW 13.2 % (11.5-14.5); WBC 12.3 10x3/uL (4.8-10.8)
[2017-10-16 13:31] LABS: PLATELET COUNT 249 10x3/uL (130-400)
[2017-10-16 13:34] LABS: ALBUMIN 3.4 g/dL (3.4-5.0); BILIRUBIN - TOTAL 0.34 mg/dL (0.2-1.3); CALCIUM 8.3 mg/dL (8.5-10.1); CARBON DIOXIDE 22.9 mmol/L (21.0-32.0); CREATININE - SERUM 5.5 mg/dL (0.6-1.3); POTASSIUM - SERUM 4.9 mmol/L (3.5-5.1); PROTEIN - SERUM 7.7 g/dL (6.4-8.2)
[2017-10-16 17:18] LABS: % SATURATION 24 % (15-55); IRON 69 ug/dl (35-150); TOTAL IRON BIND CAPACITY 280 ug/dl (260-445); UNSAT IRON BIND CAPACITY 211 ug/dl (150-375)
[2017-10-17 01:12] VITALS: BP 95/46
[2017-10-17 05:57] VITALS: BP 114/60
[2017-10-17 07:06] LABS: ALBUMIN 3.1 g/dL (3.4-5.0); ANION GAP 14.3 mmol/L (8-16); BILIRUBIN - TOTAL 0.28 mg/dL (0.2-1.3); CALCIUM 8.1 mg/dL (8.5-10.1); CARBON DIOXIDE 23.4 mmol/L (21.0-32.0); MAGNESIUM - SERUM 1.4 mg/dL (1.8-2.4); PHOSPHOROUS 3.7 mg/dL (2.5-4.9); POTASSIUM - SERUM 4.7 mmol/L (3.5-5.1); PROTEIN - SERUM 7.2 g/dL (6.4-8.2)
[2017-10-17 07:09] LABS: CREATININE - SERUM 3.2 mg/dL (0.6-1.3)
[2017-10-17 07:30] LABS: BASOPHILS 0.4 % (0-2); EOSINOPHILS 4.6 % (0-7); HEMOGLOBIN 11.9 g/dL (13.5-17.5); MCH 30.6 pg (26.0-34.0); MEAN PLATELET VOLUME 9.7 fL (7.4-10.4); MONOCYTES 6.7 % (2-11); NEUTROPHILS 72.3 % (40-80); PLATELET COUNT 234 10x3/uL (130-400); RBC 3.89 10x6/uL (4.20-6.10); RDW 13.5 % (11.5-14.5)
[2017-10-17 07:43] LABS: WBC 8.9 10x3/uL (4.8-10.8)
[2017-10-17 08:58] VITALS: BP 114/55
[2017-10-17 13:18] VITALS: Ht 185.4 cm; Wt 85.0 kg
[2017-10-17 16:16] VITALS: BP 147/69
[2017-10-17 18:44] LABS: APPEARANCE CLEAR (CLEAR); BILIRUBIN NEGATIVE (NEGATIVE); COLOR YELLOW (YELLOW); GLUCOSE NEGATIVE (NEGATIVE); KETONE NEGATIVE (NEGATIVE); NITRITE NEGATIVE (NEGATIVE); PROTEIN NEGATIVE (NEGATIVE); UROBILINOGEN NORMAL (NORMAL)
[2017-10-17 20:38] VITALS: BP 128/72
[2017-10-18 00:30] VITALS: BP 102/54
[2017-10-18 04:30] VITALS: BP 116/68
[2017-10-18 05:55] LABS: BASOPHILS 0.6 % (0-2); EOSINOPHILS 4.5 % (0-7); HEMATOCRIT 35.9 % (42.0-54.0); HEMOGLOBIN 12.1 g/dL (13.5-17.5); IMMATURE GRANULOCYTES 0.1 % (0-5); LYMPHOCYTES 22.6 % (15-50); MCH 30.2 pg (26.0-34.0); MCHC 33.7 g/dL (31.0-37.0); MCV 89.5 fL (80.0-100.0); MEAN PLATELET VOLUME 9.6 fL (7.4-10.4); MONOCYTES 5.7 % (2-11); NEUTROPHILS 66.5 % (40-80); PLATELET COUNT 239 10x3/uL (130-400); RBC 4.01 10x6/uL (4.20-6.10); RDW 13.5 % (11.5-14.5)
[2017-10-18 06:18] LABS: ALBUMIN 3.3 g/dL (3.4-5.0); ANION GAP 13.3 mmol/L (8-16); BILIRUBIN - TOTAL 0.27 mg/dL (0.2-1.3); CALCIUM 7.8 mg/dL (8.5-10.1); CARBON DIOXIDE 25.4 mmol/L (21.0-32.0); PROTEIN - SERUM 7.6 g/dL (6.4-8.2)
[2017-10-18 06:19] LABS: CREATININE - SERUM 1.8 mg/dL (0.6-1.3); PHOSPHOROUS 2.5 mg/dL (2.5-4.9); POTASSIUM - SERUM 3.7 mmol/L (3.5-5.1)
[2017-10-18 08:47] VITALS: BP 128/72
[2017-10-18 12:53] VITALS: BP 111/64
[2017-10-19 11:16] LABS: FOLATE (FOLIC ACID) - SERUM 6.9 ng/mL (>3.0)
[2017-10-19 17:11] LABS: SPE - ALBUMIN 3.4 g/dL (2.9-4.4); SPE - ALPHA-1 GLOBULIN 0.2 g/dL (0.0-0.4); SPE - ALPHA-2 GLOBULIN 1.1 g/dL (0.4-1.0); SPE - M-SPIKE Not Observed g/dL (Not Observed); SPE - TOTAL PROTEIN 6.8 g/dL (6.0-8.5)
== END 2017-10-18 15:48 | disposition home or self-care (01) | DRG 683 ==
LOC: D.ER 12:15 → D.M2 16:24 → D.EDHOLD 16:24 → D.M2 17:22
PROVIDERS: Emergency Medicine; Family Medicine
DX: N17.9 Acute kidney failure, unspecified (principal); E87.1 Hypo-osmolality and hyponatremia; E86.9 Volume depletion, unspecified; D64.9 Anemia, unspecified; I25.10 Atherosclerotic heart disease of native coronary artery without angina pectoris; Z95.1 Presence of aortocoronary bypass graft; E11.9 Type 2 diabetes mellitus without complications; I10 Essential (primary) hypertension; I95.9 Hypotension, unspecified; E83.42 Hypomagnesemia; R63.4 Abnormal weight loss; Z68.24 Body mass index [BMI] 24.0-24.9, adult; N28.1 Cyst of kidney, acquired

== ENCOUNTER → 2018-07-28 09:37 | Outpatient (CLI) | payer OTHER ==
[2017-10-17 13:18] VITALS: BMI 25.2
== END | disposition home or self-care (01) ==
LOC: D.RAD 09:37
PROVIDERS: ATTEND Family Medicine
DX: M54.2 Cervicalgia (principal)